=== PATIENT | female | born 1995 | race African-American/Black ===

== ENCOUNTER 2020-07-18 09:45 | Day surgery (SDC) ==
[2020-07-18 10:12] VITALS: BP 117/63; TEMP 98; BMI 32.9
[2020-07-18 10:50] LABS: Amnisure Test No Membranes Rupture (No Rupture)
[2020-07-18 10:51] LABS: Amnisure Internal Control QC ACCEPTABLE (ACCEPTABLE)
--- NOTE | 2020-07-18 10:57 | PDOC.LDHP ---
Labor and Delivery H&P Chief complaint: loss of fluid HPI: Morena is a 25yo who presents to L&D, sent from clinic, for suspected rupture of membranes. She had no care for this . She recently travelled here from [place]. She is certain of her LMP of 10/13/2020. This puts her at 39.6wks by LMP. She denies vaginal bleeding, vaginal discharge, contractions, or decreased movement. She denies PMH, PSH, significant FH. Her last was term and she had to be induced. Current gestational age (weeks): 39 (6d) Due date: 07/19/20 Dating criteria: last menstrual period Grav: 2 Para: 1 OB History Details: No care Current complications: none Past Medical History: Denies Current medications: pre-asundra vitamins Previous surgical history: none Allergies/Adverse Reactions: Allergies Allergy/AdvReac Type Severity Reaction Status Date / Time No Known Allergies Allergy Verified 07/18/20 10:06 Social history: none - Physical Exam Vital signs reviewed and normal: yes General: NAD Heart: RRR Lungs: nonlabored breathing Abdomen: gravid Extremeties: no edema FHT: category 1 [place] contractions every: 4 minutes - Vaginal Exam cm dilated: 1 Effacement: 25% Station: -3 - OB Labs Blood type: unknown RH: unknown Antibody Screen: unknown HIV: unknown RPR: unknown HEPSAg: unknown 1 hour GCT: unknown GBS: unknown Urine drug screen: not done - Assessment Suspected ROM No care Term - Plan -: Amnisure collected GC/CT, VP3, and GBS swabs collected. Initial panel collected Will obtain US for growth and amniotic fluid estimate. Sterile speculum exam was equivocal. She had a significant amount of discharge that made it difficult to ascertain if there was definitive pooling or not. Candy GUZMAN PGY2 Addendum - Attending - Attending Attestation Date/Time: 07/18/20 1129 I personally evaluated the patient and discussed the management with Dr. Crandall. I agree with the History, Examination, Assessment and Plan documented above with any addition or exceptions noted below. 39+ weeks by LMP with no PNC prior to today. Amnisure negative, SSE equivocal. JOY normal on ultrasound (15+cm). SVE closed. Will plan to d/c home to follow up at [facility] this week for further dispo and to follow up remaining labs that are pending. GBS was collected today.
[2020-07-18 11:25] LABS: #Eosinphils 0.1 thou/uL (0.0-0.7); #Lymphocytes 1.6 thou/uL (1.20-3.40); #Monocytes 0.5 thou/uL (0.11-0.59); #Neutrophils 4.3 thou/uL (1.40-6.50); %Basophils 0.4 % (0.0-1.0); %Eosinophils 1.4 % (0.0-10.0); %Lymphocytes 24.1 % (21.0-51.0); %Monocytes 7.4 % (0.0-10.0); %Neutrophils 66.7 % (42.0-75.0); Hemoglobin 9.2 g/dL (12.0-16.0); Mean Corpuscular HGB CONC 33.2 g/dL (32.0-36.0); Mean Corpuscular Hemoglobin 28.6 pg (27.0-31.0); Mean Corpuscular Volume 86.1 fL (78.0-98.0); Mean Platelet Volume 7.9 fL (7.4-10.4); Platelet Count 291 thou/uL (130-400); RBC Distribution Width 16.4 % (11.5-14.5); Red Blood Cell (RBC) Count 3.23 mill/uL (4.20-5.40); White Blood Cell (WBC) Count 6.5 thou/uL (4.8-10.8)
--- NOTE | 2020-07-18 11:58 | ULT ---
ULTRASOUND OBSTETRICAL COMPLETE: DATE: 07/18/2020 HISTORY: 25-year-old female in third trimester with no care FINDINGS: number: ramey lie: Cephalic Maternal cervix: Obscured Placenta: Anterior. No placenta previa. Amniotic fluid volume: JOY = 15cm heart rate: 145 bpm The following anatomy is visualized, with no evidence of anomalies: Head, four-chamber heart, stomach, kidneys, cord insertion, bladder, spine, lips, three-vessel cord, and left upper extremity. Nose, right upper extremity, bilateral lower extremities, cerebellum, and lateral ventricles, are not visualized. biometry: Biparietal diameter (BPD): 9.0 cm 36 w 3 d Head circumference (HC): 34.0 cm 39 w 1 d Abdominal circumference (AC): 36.1 cm 40 w 0 d Femur length (FL): 7.6 cm 38 w 6 d Average ultrasound age (AUA): 38 w 4 d Estimated date of delivery (JERRY): 07/28/2020 Estimated weight (EFW): 3708 g +/- 549 g IMPRESSION: 1) Live 3rd trimester intrauterine gestation. 2) Estimated gestational age of 38 weeks, 4 days 3) Vertex lie. 4) Limited visualization of anatomy because of late third trimester stage.
[2020-07-18 12:03] LABS: Hep C IgG Ab Non-Reactive (NonReactive); Hep C Index 0.07 S/CO (0-0.79)
[2020-07-18 12:04] LABS: HIV (1/2) Antibody/Antigen Non-Reactive (NonReactive); HIV 1/2 INDEX 0.13 S/CO (<1.00); Hep B Surf Ag Non-Reactive S/CO (NonReactive); Syphilis Antibody Nonreactive (Nonreactive); Syphilis Antibody Index 0.03 S/CO (<1.00 Non-Reactive)
--- NOTE | 2020-07-18 12:14 | PDOC.BPN ---
- Brief Progress Note Encounter Date: 07/18/28 Encounter Time: 12:00 US showed size = dates for LMP. NST was reactive. JOY was 15cm. VP3 negative GC/CT pending. Discussed labor precautions with patient. Will call with results of GC/CT and GBS. Recommend f/u appt Saturday at [facility]. Candy GUZMAN PGY2
[2020-07-19 21:59] LABS: Chlamydia by PCR Not Detected (NotDetected); GC by PCR Not Detected (NotDetected)
== END 2020-07-18 12:20 | disposition home or self-care (01) ==
LOC: L&D/OP 09:45
PROVIDERS: ATTEND Obstetrics & Gynecology
DX: O99.89 Other specified diseases and conditions complicating pregnancy, childbirth and the puerperium (principal); N89.8 Other specified noninflammatory disorders of vagina; Z3A.39 39 weeks gestation of pregnancy
CPT/HCPCS: 36415; 76805; 84112; 85025; 86762; 86780; 86803; 86850; 86900; 86901; 87081; 87340; 87389; 87480; 87491; 87510; 87591; 87660; 99285

== ENCOUNTER 2020-07-22 10:38 | Outpatient (CLI) | payer OTHER ==
[2020-07-22 19:47] LABS: SARS-CoV-2 MS2 Positive; SARS-CoV-2 N Gene Negative; SARS-CoV-2 S Gene Negative; SARS-CoV-2 by NAA Not Detected (NotDetected); SARS-CoV-2 orf1ab Negative
== END 2020-07-22 10:39 | disposition home or self-care (01) ==
LOC: LABSCS 10:38
PROVIDERS: ATTEND Student in an Organized Health Care Education/Training Program
DX: Z20.828 Contact with and (suspected) exposure to other viral communicable diseases (principal)
CPT/HCPCS: 87635; U0003

== ENCOUNTER 2020-07-25 15:46 | Inpatient (IN) | payer MEDICAID ==
[2020-07-25 17:22] VITALS: BMI 21.7
--- NOTE | 2020-07-25 17:27 | PDOC.FPROB ---
FMR OB H&P: HPI - History of Present Illness Chief Complaint: Contractions History of Present Illness: Patient is a 25 yo @40.6 weeks, based on LMP who presents to the clinic with complaints of contractions every 15 minutes since 0700 today. She denies leakage of fluid, vaginal discharge, vaginal bleeding, fever or chills. She reports no history of STIs. Patient reportedly came over from [place] 3 months ago and had her first visit last week at [facility] where she reported leakage of fluid. She came to the ED where she was checked and no rupture was indicated and she was d/c with a scheduled induction of 07/26/2020. She states that her first she was induced because she was >9 months , it was a 4 years ago, only had a small laceration, with no complications. 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 COATER History: Denies history STIs - Surgical History Sx History: None - Social History Social History: No alcohol, drugs, or smoking - Family History Family History: None FMR OB H&P: Medications - Current Home Medications: Medication Instructions Recorded Confirmed Type Vit No.129/Iron/Folic 1 each PO DAILY 07/18/20 07/25/20 History [ Tablet] Allergies/Adverse Reactions: Allergies Allergy/AdvReac Type Severity Reaction Status Date / Time No Known Allergies Allergy Verified 07/18/20 10:06 FMR OB H&P: ROS - Review of Systems General: denies: fever/chills, weight/appetite/sleep changes Eyes: denies: eye pain ENT: denies: nasal congestion, rhinorrhea Cardiovascular: denies: chest pain, palpitation Respiratory: denies: cough, congestion Gastrointestinal: denies: abdominal pain, nausea, vomiting Genitourinary (Female): reports: contractions. denies: dysuria, vaginal discharge, vaginal pain, vaginal bleeding Musculoskeletal: denies: pain, redness, swelling Neurologic: denies: numbness, syncope Integumentary: denies: itching, rash Breast: denies: lumps, bumps Endocrine: denies: cold intolerance, heat intolerance Hematologic/Lymphatic: denies: prolonged or excessive bleeding, enlarged lymph nodes Psychological: denies: depression, anxiety FMR OB H&P: Vital Signs - Maternal Vital signs: BP 117/63, HR 89, RR 20, Temp 98.7F - Heart Tones Baseline: 140 Variability: moderate Acceleration: present Deceleration: absent Category: category 1 [place] contractions every: 10 min FMR OB H&P: Physical Exam - Physical Exam General: NAD HEENT: normocephalic and atraumatic, PERRLA Neck: supple, FROM Chest: non-tender to palpation, no lesions Breast: symmetric, non-tender Heart: RRR, normal S1/S2, pulses present, no edema General: CTAB, no respiratory distress, good air movement Abdomen: gravid, non-tender Musculoskeletal: pulses present, FROM in all four extremities Neurological: no tremor, no focal deficit Skin: no rash, no jaundice Lymphatic: no unusual bruising or bleeding, no purpura Psychiatric: intact recent and remote memory, good judgement and insight, normal mood and affect - Pelvic Exam SVE: /- Carlisle score: 7 Membranes: intact FMR OB H&P: A/P Discussion: Date/Time: 07/25/20 1723 Patient is a 25 yo @40.6 weeks based on LMP who presented to the hospital with complaints of contractions every 15 minutes since 0700 today. #1 Term Labor - Labs Negative, no Hep C Ab documented, ordered today - GBS negative - /-, membranes intact - Cat I strip now, previous 10 min period of minimal variability, contractions every 10 min - Carlisle Score 7, will start pitocin - Will US at bedside Late and Incomplete Care - reported came over from [place] 3 months ago, first visit last week - will consult CM Anemia of - Hg 9.1 at last visit - No reported history of anemia, no complications - Hemagram ordered - monitor Excessive Maternal Weight Gain - 96 lbs - aware This H&P was discussed with Dr. Cerrato who agree with the above documentation and plan. Addendum - Attending - Attending Attestation Date/Time: 07/25/202225 I personally evaluated the patient and discussed the management with Dr. Grimaldo. I agree with the History, Examination, Assessment and Plan documented above with any addition or exceptions noted below.
[2020-07-25] MEDS ORDERED: Diphenoxylate HCl/Atropine Tablet PO PRN (17:43)
[2020-07-25] MEDS ORDERED: Acetaminophen 500 MG TAB PO PRN (17:43)
[2020-07-25] MEDS ORDERED: Carboprost 250 MCG/ML AMP IM PRN (17:43)
[2020-07-25] MEDS ORDERED: Butorphanol Tartrate 1 MG/ML VIAL SLOW IVP PRN (17:43)
[2020-07-25] MEDS ORDERED: Methylergonovine 0.2 MG/ML VIAL IM PRN (17:43)
[2020-07-25] MEDS ORDERED: hydrALAZINE 20 MG/ML VIAL SLOW IVP PRN ×2 (17:43→22:54)
[2020-07-25] MEDS ORDERED: Misoprostol 200 MCG TAB PR PRN (17:43)
[2020-07-25] MEDS ORDERED: Lidocaine 1% (PF) 30 ML VIAL SC PRN (17:43)
[2020-07-25] MEDS ORDERED: Ondansetron PF 4 MG/2 ML Vial IVP PRN ×2 (17:43→22:54)
[2020-07-25] MEDS ORDERED: Promethazine HCl 25 MG/ML VIAL IM PRN (17:43)
[2020-07-25] MEDS ORDERED: Ibuprofen 800 MG TAB PO PRN (17:43)
[2020-07-25] MEDS ORDERED: NS w/ Oxytocin 10 units 500 ML IV SCH (17:45)
[2020-07-25] MEDS ORDERED: Lactated Ringer's 1,000 ML IV SCH (17:45)
[2020-07-25 18:26] LABS: Hemoglobin 10.3 g/dL (12.0-16.0); Mean Corpuscular HGB CONC 31.7 g/dL (32.0-36.0); Mean Corpuscular Hemoglobin 27.1 pg (27.0-31.0); Mean Corpuscular Volume 85.5 fL (78.0-98.0); Mean Platelet Volume 8.2 fL (7.4-10.4); Platelet Count 299 thou/uL (130-400); RBC Distribution Width 16.3 % (11.5-14.5); Red Blood Cell (RBC) Count 3.81 mill/uL (4.20-5.40); White Blood Cell (WBC) Count 11.1 thou/uL (4.8-10.8)
[2020-07-25 19:06] LABS: Syphilis Antibody Nonreactive (Nonreactive); Syphilis Antibody Index 0.03 S/CO (<1.00 Non-Reactive)
[2020-07-25 19:23] LABS: HBSAg Index 0.13 S/CO (0-0.99); Hep B Surf Ag Non-Reactive S/CO (NonReactive); Hep C IgG Ab Non-Reactive (NonReactive); Hep C Index 0.06 S/CO (0-0.79)
[2020-07-25] MEDS: NS / Oxytocin 40 units/1000ml 1,000 ML IV PRN (21:49)
[2020-07-25] MEDS ORDERED: Milk Of Magnesia 30 ML UDCUP PO PRN (22:54)
[2020-07-25] MEDS ORDERED: Preparation H Ointment 28 GM TUBE PR PRN (22:54)
[2020-07-25] MEDS ORDERED: Bisacodyl 10 MG SUPP PR PRN (22:54)
[2020-07-25] MEDS ORDERED: Lanolin Ointment 7 GM TUBE TOP PRN (22:54)
[2020-07-25] MEDS ORDERED: diphenhydrAMINE 25 MG CAP PO PRN (22:54)
[2020-07-25] MEDS ORDERED: NS / Oxytocin 40 units/1000ml 1,000 ML IV SCH (23:00)
--- NOTE | 2020-07-25 23:04 | PDOC.LDPN ---
Labor & Delivery Progress Note - Subjective Subjective: painful contractions (Called to bedside as patient was found to be 9.5/100/+1 on exam at 2104 and was feeling the urge to poop) - Objective Vital signs reviewed and normal: yes General: breathing through contractions Uterine fundus: non tender Dilation: 9.5 Effacement: 100% Station: 1+ FHT: category 1, variability present [place] contractions every: 2 min AROM: clear fluid (unable to discern as only a small amount of fluid was present) Plan: other (Rohit was found to have an anterior lip @2114. AROM with small amount of fluid, hard to discern if clear. Cat 1 strip. Used interpretor phone to let patient know that she is almost complete but that we cannot give medications at this stage since it could affect baby's breathing. Anticipate .)
[2020-07-26] MEDS: NS / Oxytocin 40 units/1000ml 1,000 ML IV PRN (00:03)
[2020-07-26] MEDS ORDERED: Methylergonovine 0.2 MG/ML VIAL IM PRN (00:51)
[2020-07-26] MEDS ORDERED: Misoprostol 200 MCG TAB VAG PRN (00:51)
[2020-07-26] MEDS ORDERED: NS / Oxytocin 40 units/1000ml 1,000 ML IV SCH (01:00)
[2020-07-26] MEDS: Ibuprofen 800 MG TAB PO SCH ×3 (06:13→20:49)
--- NOTE | 2020-07-26 06:14 | DN ---
DATE OF PROCEDURE: 07/25/2020 DELIVERING PHYSICIAN: Desi Reyes MD, PGY-1; with Karson Cormier DO, PGY-3. ATTENDING: Dr. Shiva Cerrato. PROCEDURE: Spontaneous vaginal delivery. ANESTHESIA: Local for repair. QUANTITATIVE BLOOD LOSS: 435 mL. PREOPERATIVE DIAGNOSES: 1. Term intrauterine in labor. 2. Late to care and limited care. POSTOPERATIVE DIAGNOSES: 1. Term intrauterine , delivered. 2. Late to care and limited care. INDICATION: A 25-year-old female, G2, P1, at 40.5 weeks' gestational age, presented in active labor. DELIVERY NOTE: This is a 25-year-old female, G2, P1-0-0-1, at 40.5 weeks, who delivered a viable female infant at 2147 on 07/25/2020, following an uneventful antepartum course, a vigorous female was delivered over the perineum in the occipitoanterior position. There was brief shoulder dystocia that was resolved with suprapubic pressure and Brinda maneuver. Anterior shoulder and then remainder of body was delivered. Nuchal cord x1 which was reduced upon delivery. The head was held down, and mouth and nose were bulb suctioned. Cord was clamped and cut, and cord blood was collected. Placenta delivered intact in the [place] presentation with a three-vessel cord noted. Fundal massage was performed and the fundus was firm. The cervix and vagina were inspected. The cervix was found to be free of lacerations, but there was a small first-degree perineal lac noted. It was repaired with 3-0 Vicryl on SH in the usual fashion with local lidocaine for repair with good approximation, and hemostasis was noted. Infant went to nursery in good condition for routine care; however, of note, the infant seemed to have decreased movement of the left arm, which was the arm that was impacted with the shoulder dystocia. Apgars were 8 and 8 at 1 and 5 minutes respectively. The patient tolerated delivery well and went to after routine recovery care. Dr. Cerrato was present and teaching throughout the entire delivery. Job ID: [id number] MTDD
[2020-07-26 06:20] LABS: Hemoglobin 9.1 g/dL (12.0-16.0); Mean Corpuscular HGB CONC 32.7 g/dL (32.0-36.0); Mean Corpuscular Hemoglobin 27.8 pg (27.0-31.0); Mean Platelet Volume 7.8 fL (7.4-10.4); Platelet Count 272 thou/uL (130-400); RBC Distribution Width 16.2 % (11.5-14.5); Red Blood Cell (RBC) Count 3.26 mill/uL (4.20-5.40); White Blood Cell (WBC) Count 16.7 thou/uL (4.8-10.8)
[2020-07-26] MEDS: Prenatal Vitamin 1 TAB PO SCH (08:30)
[2020-07-26] MEDS: Docusate Calcium (SURFAK) 240 MG CAP PO SCH ×2 (08:30→20:49)
[2020-07-26] MEDS: Ferrous Sulfate 325 MG TAB PO SCH ×2 (08:30→17:06)
--- NOTE | 2020-07-26 08:49 | PDOC.OBPPN ---
FMR OB PN: Subj - Interval History Hospital Day: 2 Day: 1 Chief Complaint: PP Day 1 Interval History: Notes mild vaginal pain, Denies bleeding, cramping, discharge. FMR OB PN: Obj - Maternal Vital signs: T 98.4, HR 73, RR 14, BP 118/63 - Urine output I&O: 07/25/20 07/26/20 07/27/20 06:59 06:59 06:59 Output Total 658 Balance -658 FMR OB PN: Exam - Physical Exam General: NAD HEENT: normocephalic and atraumatic, PERRLA, EOMI Neck: supple, FROM Heart: RRR, normal S1/S2 General: CTAB, no respiratory distress Abdomen: non-tender, bowel sound present Musculoskeletal: FROM in all four extremities Neurological: no focal deficit Skin: no rash Psychiatric: intact recent and remote memory, good judgement and insight, normal mood and affect FMR OB PN: Data - Labs Lab results: Laboratory Results - last 24 hr 07/25/20 07/25/20 07/25/20 18:13 18:13 18:13 WBC RBC Hgb Hct MCV MCH MCHC RDW Plt Count MPV Syphilis IgG/IgM Ab Nonreactive Hep Bs Antigen Non-Reactive Hepatitis C Antibody Non-Reactive Blood Type O POSITIVE Antibody Screen NEGATIVE 07/25/20 07/26/20 18:13 05:58 WBC 11.1 H 16.7 H RBC 3.81 L 3.26 L Hgb 10.3 L 9.1 L Hct 32.5 L 27.7 L MCV 85.5 85.0 MCH 27.1 27.8 MCHC 31.7 L 32.7 RDW 16.3 H 16.2 H Plt Count 299 272 MPV 8.2 7.8 Syphilis IgG/IgM Ab Hep Bs Antigen Hepatitis C Antibody Blood Type Antibody Screen FMR OB PN: A/P Discussion: Date/Time: 07/26/20 0847 Patient is a 25 yo G2 Now P2 who delivered a TAGA F on 07/25/2020 @2147 via complicated by a 1st degree lac and brief shoulder dystocia relieved with suprapubic pressure and Brinda. PP Day 1 - plans to bottle feed - am H/H 9.1/27.2 - Tylenol prn for pain - vitals stable, will continue to monitor Late to Care, Incomplete Care - CM consulted Dispo: Likely 1-2 days This H&P was discussed with Dr. Rai who agree with the above documentation and plan. Addendum - Attending - Attending Attestation Date/Time: 07/26/20 7670 I personally evaluated the patient and discussed the management with the team. I agree with the History, Examination, Assessment and Plan documented above with any addition or exceptions noted below.
[2020-07-26] MEDS ORDERED: Adacel (T-DAP) 0.5 ML SYRINGE IM ONE (09:00)
[2020-07-26] MEDS ORDERED: FLU VACC QS2020-21(6MOS UP)/PF 60 MCG/0.5 ML SYRINGE IM ONE (09:00)
[2020-07-27] MEDS: Ibuprofen 800 MG TAB PO SCH ×2 (05:41→13:55)
--- NOTE | 2020-07-27 08:20 | PDOC.PP ---
Post Progress Note Post Day #: Day 2 Subjective: Patient is resting comfortably in bed. States that she no longer has cramping, endorses mild vaginal discharge, clear. She denies chest pain, SOB, edema, OSORIO. She states she is urinating normally, has not had a BM yet and has not had gas. PO intake tolerated: yes Flatus: no Ambulation: yes Vital Signs (12 hours) Temp Pulse Resp BP 07/26/20 21:53 98.2 F 70 16 100/48 L Weight Weight 59.097 kg - Physical Examination General: NAD Cardiovascular: no m/r/g, RRR Respiratory: clear to auscultation bilaterally, non-labored breathing Abdominal: + bowel sounds, no distention Extremities: negative homans (B) Neurological: no gross focal deficits Psychiatric: A&Ox3, normal affect Result Diagrams: 07/26/20 05:58 Additional Labs: Post Labs Hep Bs Antigen Non-Reactive S/CO (NonReactive) 07/25/20 18:13 Blood Type O POSITIVE 07/25/20 18:13 - Assessment/Plan Patient is a 25 yo G2 Now P2 who delivered a TAGA F on 07/25/2020 @2147 via complicated by a 1st degree lac and brief shoulder dystocia relieved with suprapubic pressure and Brinda. PP Day 2 - plans to bottle feed - am H/H 9.1/27.2 - Tylenol prn for pain - vitals stable, will continue to monitor Late to Care, Incomplete Care - CM consulted and patient has proper resources - Plans to f/u with PNC for PP care, baby plans to f/u at [facility] Dispo: Likely 1-2 days Addendum - Attending - Attending Attestation Date/Time: 07/27/20 6846 I personally evaluated the patient and discussed the management with the team. I agree with the History, Examination, Assessment and Plan documented above with any addition or exceptions noted below.
[2020-07-27 09:05] VITALS: BP 114/59; TEMP 98
[2020-07-27] MEDS: Docusate Calcium (SURFAK) 240 MG CAP PO SCH (09:41)
[2020-07-27] MEDS: Prenatal Vitamin 1 TAB PO SCH (09:41)
[2020-07-27] MEDS: Ferrous Sulfate 325 MG TAB PO SCH ×2 (09:41→17:33)
[2020-07-27] MEDS ORDERED: FLU VACC QS2020-21(6MOS UP)/PF 60 MCG/0.5 ML SYRINGE IM ONE (13:45)
== END 2020-07-27 18:30 | disposition home or self-care (01) | DRG 807 ==
LOC: L&D/OP 15:46 → EDSTATUS 16:26 → L&D 22:02 → 3SW 07-26 00:32
PROVIDERS: ADMIT Family Medicine; ATTEND Family Medicine
PROC: 10E0XZZ Delivery of Products of Conception, External Approach (ICD-10-PCS; principal; 2020-07-25)
PROC: 10907ZC Drainage of Amniotic Fluid, Therapeutic from Products of Conception, Via Natural or Artificial Opening (ICD-10-PCS; 2020-07-25)
PROC: 3E0P7VZ Introduction of Hormone into Female Reproductive, Via Natural or Artificial Opening (ICD-10-PCS; 2020-07-25)
PROC: 3E033VJ Introduction of Other Hormone into Peripheral Vein, Percutaneous Approach (ICD-10-PCS; 2020-07-25)
PROC: 3E0234Z Introduction of Serum, Toxoid and Vaccine into Muscle, Percutaneous Approach (ICD-10-PCS; 2020-07-25)
PROC: 0HQ9XZZ Repair Perineum Skin, External Approach (ICD-10-PCS; 2020-07-25)
DX: O69.81X0 Labor and delivery complicated by cord around neck, without compression, not applicable or unspecified (principal); Z37.0 Single live birth; Z20.828 Contact with and (suspected) exposure to other viral communicable diseases; O99.02 Anemia complicating childbirth; D64.9 Anemia, unspecified; O66.0 Obstructed labor due to shoulder dystocia; O70.0 First degree perineal laceration during delivery; Z3A.40 40 weeks gestation of pregnancy; Z23 Encounter for immunization
CPT/HCPCS: 36415; 85027; 86780; 86803; 86850; 86900; 86901; 87340; 88307; 90471; 90662; 99285; G0008; J2001

== ENCOUNTER 2022-03-16 09:25 | Emergency (ER) | payer SELFPAY ==
[2022-03-16] MEDS ORDERED: Ondansetron PF 4 MG/2 ML Vial ONE (10:00)
[2022-03-16 10:13] LABS: #Lymphocytes 1.4 thou/uL (1.20-3.40); #Monocytes 0.2 thou/uL (0.11-0.59); #Neutrophils 8.5 thou/uL (1.40-6.50); %Eosinophils 0.2 % (0.0-10.0); %Lymphocytes 14.1 % (21.0-51.0); %Monocytes 1.8 % (0.0-10.0); %Neutrophils 83.9 % (42.0-75.0); Hemoglobin 11.4 g/dL (12.0-16.0); Mean Corpuscular HGB CONC 32.1 g/dL (32.0-36.0); Mean Corpuscular Hemoglobin 25.3 pg (27.0-31.0); Mean Corpuscular Volume 78.9 fL (78.0-98.0); Mean Platelet Volume 7.3 fL (7.4-10.4); Platelet Count 372 thou/uL (130-400); RBC Distribution Width 15.8 % (11.5-14.5); White Blood Cell (WBC) Count 10.2 thou/uL (4.8-10.8)
[2022-03-16 10:29] LABS: BHCG - Serum Negative (NEGATIVE); Pregs Control Background? CLEAR/WHITE (CLR/WHITE); Pregs Control Bar Appear? YES (CONTROL BAR)
[2022-03-16 10:44] LABS: ALT (SGPT) 14 U/L (8-55); AST (SGOT) 15 U/L (5-34); Albumin 4.7 g/dL (3.5-5.0); Alkaline Phosphatase 116 U/L (40-110); Anion Gap 14 mmol/L (10-20); BUN (Urea Nitrogen) 7 mg/dL (7.0-18.7); Bilirubin, Total 0.6 mg/dL (0.2-1.2); Calc. Creatinine Clearance 0 mL/min (70-130); Calcium 9.9 mg/dL (7.8-10.44); Carbon Dioxide 22 mmol/L (22-29); Chloride 103 mmol/L (98-107); Globulin 4.4 g/dL (2.4-3.5); Glucose 152 mg/dL (70-105); Lipase 18 U/L (8-78); Potassium 3.4 mmol/L (3.5-5.1); Protein, Total 9.1 g/dL (6.0-8.3); Sodium 136 mmol/L (136-145)
[2022-03-16 11:21] LABS: Bilirubin Negative (Negative); Blood, Urine Negative (Negative); Clarity Clear (Clear); Glucose, Urine (Dipstick) 50 mg/dL (Negative); Ketone, Urine 20 mg/dL (Negative); Leukocyte Negative Leu/uL (Negative); Nitrite Negative (Negative); Protein, Urine (Dipstick) 20 mg/dL (Neg-Trace); Specific Gravity, Urine 1.018 (1.002-1.036); Urobilinogen Normal mg/dL (Less than 2); pH, Urine 8.5 (5.0-9.0)
== END 2022-03-16 12:34 | disposition home or self-care (01) ==
LOC: ERS 09:25
DX: R11.2 Nausea with vomiting, unspecified (principal)
CPT/HCPCS: 80053; 81003; 83690; 84703; 85025; 96361; 96374; J2405